=== PATIENT | male | born 1995 | race Hispanic/Latino ===

== ENCOUNTER 2021-09-04 12:00 | Emergency (ER) | payer SELFPAY ==
[~2021-09-04] VITALS: Ht 149.9 cm; Wt 69.5 kg
[2021-09-04 12:44] LABS: IMMATURE GRANULOCYTES 0.2 % (0.0-5.0); MEAN CELL VOLUME 93.1 fL CALC (80.0-100.0); MEAN CORPUSCULAR HGB CONC 33.3 g/dL CAL (32.0-36.0); NEUT# 9.99 thou/uL (1.82-7.42); RED BLOOD COUNT 4.19 mill/uL (4.70-6.10); RED CELL DISTRI WIDTH 12.7 % (11.5-15.5)
[2021-09-04 13:10] LABS: ALBUMIN 4.2 g/dL (3.2-5.0); ALKALINE PHOSPHATASE 79 u/l (38-126); ANION GAP 11 (6-22 (CALC)); BILIRUBIN, TOTAL 0.3 mg/dL (0.0-1.4); BUN 13 mg/dL (9-20); BUN/CREATININE RATIO 23 (12-20 (CALC)); CARBON DIOXIDE 30 mmol/l (22-30); CHLORIDE 101 mmol/l (95-108); CREATININE 0.6 mg/dL (0.7-1.3); GFR > 60 ML/MIN (>=60 (CALC)); GFR FOR AFR.AMER. > 60 ML/MIN (>=60 (CALC)); LIPASE 79 u/l (23-300); POTASSIUM 3.9 mmol/l (3.5-5.1); SGOT/AST 65 u/l (17-59); SODIUM 138 mmol/l (137-146); TOTAL PROTEIN 7.8 g/dL (6.3-8.2)
[2021-09-04 13:22] LABS: MYOGLOBIN 36 ng/mL (0 - 121)
[2021-09-04] MEDS ORDERED: MOTRIN800 MG PO (14:19)
[2021-09-04] MEDS ORDERED: TESSALON PERLE100 MG PO (14:19)
[2021-09-04] MEDS ORDERED: METHOCARBAMOL500 MG PO (14:19)
[2021-09-04] MEDS ORDERED: ZPAK PO (14:19)
[2021-09-04 14:31] VITALS: BP 135/75
== END 2021-09-04 14:35 | disposition home or self-care (01) | DRG 153 ==
LOC: ED 12:00
PROVIDERS: Nurse Practitioner
DX: J06.9 Acute upper respiratory infection, unspecified (principal); R09.1 Pleurisy; Z20.822 Contact with and (suspected) exposure to COVID-19